=== PATIENT | female | born 1985 | race African-American/Black ===

== ENCOUNTER 2023-10-02 23:33 | Emergency (ER) | payer MEDICAID ==
[~2023-10-02] VITALS: Ht 157.5 cm; Wt 79.5 kg
[2023-10-03] VITALS: TEMP 98.5; O2SAT 100
[2023-10-03 00:03] LABS: BASOPHILS % 0.4 % (0.0-2.0); DIFFERENTIAL COMMENT 0; EOSINOPHILS % 7.5 % (0.0-5.0); HEMATOCRIT. 34.8 % (36.0-48.0); HEMOGLOBIN. 11.1 g/dL (12.0-16.0); LYMPHOCYTES % 51.4 % (20.0-50.0); MEAN CORPUSCULAR HEMOGLOBIN 22.5 pg (28.0-32.0); MEAN CORPUSCULAR HGB CONC 31.9 g/dL (31.0-37.0); MEAN CORPUSCULAR VOLUME 70.7 fL (81.0-99.0); MONOCYTES % 4.8 % (2.0-8.0); NEUTROPHILS % 35.9 % (40.0-76.0); PLATELET 328 x1000/uL (130-400); RED BLOOD CELL COUNT 4.92 mill/uL (4.2-5.4); RED CELL DISTRIBUTION WIDTH 15.6 % (11.6-14.6); WHITE BLOOD COUNT 7.2 x1000/uL (4.5-11.0)
[2023-10-03 00:26] LABS: CARBON DIOXIDE 26 mEq/L (21-32); CHLORIDE 105 mEq/L (98-107); POTASSIUM 3.9 mEq/L (3.5-5.1); SODIUM 139 mEq/L (136-145)
[2023-10-03 00:27] LABS: CLARITY URINE CLOUDY (CLEAR); COLOR URINE YELLOW (YELLOW); GLUCOSE URINE NEGATIVE (NEGATIVE); KETONES URINE NEGATIVE (NEGATIVE); LEUKOCYTE ESTERASE URINE 2+ (NEGATIVE); NITRITE URINE NEGATIVE (NEGATIVE); OCCULT BLOOD URINE 2+ (NEGATIVE); PH URINE 6.5 (4.5-8.0); PROTEIN URINE NEGATIVE (NEGATIVE); UROBILINOGEN URINE 0.2 E.U./dL (0.2-1.0)
[2023-10-03 00:27] LABS: CALCIUM 9.1 mg/dL (8.7-10.4)
[2023-10-03 00:31] LABS: CREATININE 0.8 mg/dL (0.6-1.0); GLUCOSE 132 mg/dL (70-105)
[2023-10-03 00:32] LABS: UREA NITROGEN BLOOD 11 mg/dL (9-23)
[2023-10-03 00:33] LABS: ALANINE AMINOTRANSFERASE 10 IU/L (10-49); ALBUMIN 4.6 g/dL (3.2-4.8); ASPARTATE AMINOTRANSFERASE 13 IU/L (<34)
[2023-10-03 00:34] LABS: BILIRUBIN TOTAL 0.3 mg/dL (0.1-1.0); PROTEIN TOTAL 8.3 g/dL (6.0-8.3)
[2023-10-03 00:37] LABS: HCG SCREEN NEGATIVE
[2023-10-03 00:50] LABS: TROPONIN I HIGH SENSITIVITY < 4 ng/L (3.0-34)
[2023-10-03] MEDS ORDERED: IBUP-2029 MT (02:19)
[2023-10-03 02:46] VITALS: BP 128/74; PULSE 68; RESP 19
[2023-10-03 03:15] LABS: SQUAMOUS EPITHELIAL CELL URINE 1+ /lpf (RARE/1+)
[2023-10-03 03:17] LABS: RBC URINE 0-2 /hpf (0-2)
[2023-10-03 03:18] LABS: BACTERIA URINE 1+; YEAST URINE 2+
== END 2023-10-03 02:53 | disposition home or self-care (01) ==
LOC: ER 23:33
DX: R09.1 Pleurisy (principal); R07.89 Other chest pain; J45.909 Unspecified asthma, uncomplicated; E11.9 Type 2 diabetes mellitus without complications
CPT/HCPCS: 36415; 71045; 80053; 81003; 84484; 84703; 85025; 93005; 99285

== ENCOUNTER 2024-07-04 23:24 | Emergency (ER) | payer MEDICAID ==
[~2024-07-04] VITALS: Ht 167.6 cm; Wt 79.0 kg
[~2024-07-04 23:24] MED LIST: IBUP-2029 MT
[2024-07-04 23:44] VITALS: BP 135/80; PULSE 74; RESP 18; TEMP 98.3; O2SAT 100
[2024-07-05 02:27] LABS: CLARITY URINE CLEAR (CLEAR); COLOR URINE YELLOW (YELLOW); GLUCOSE URINE NEGATIVE (NEGATIVE); KETONES URINE TRACE (NEGATIVE); LEUKOCYTE ESTERASE URINE NEGATIVE (NEGATIVE); NITRITE URINE NEGATIVE (NEGATIVE); OCCULT BLOOD URINE NEGATIVE (NEGATIVE); PH URINE 5.5 (4.5-8.0); PROTEIN URINE NEGATIVE (NEGATIVE); SPECIFIC GRAVITY URINE 1.035 (1.005-1.030)
[2024-07-05] MEDS ORDERED: ACET-2708 MT (03:47)
[2024-07-05] MEDS: DEXAMETHASONE 10 MG/ML VIAL IM ONE (04:15)
[2024-07-05 04:33] LABS: UCG SCREEN NEGATIVE
[2024-07-05 04:34] LABS: UCG KIT LOT# 873622
== END 2024-07-05 04:36 | disposition home or self-care (01) ==
LOC: ER 23:24
DX: M54.40 Lumbago with sciatica, unspecified side (principal); E11.9 Type 2 diabetes mellitus without complications; Z88.0 Allergy status to penicillin
CPT/HCPCS: 99283; 81025 ×2; 81003; 96372; J1100